=== PATIENT | male | born 1985 | race Caucasian/White ===

== ENCOUNTER 2020-05-10 18:19 | Inpatient (IN) | payer BC ==
[2020-05-10] MEDS ORDERED: DIPH,PERTUS(ACELL)TETVAC-LF 0.5 ML VIAL IM ONE (19:22)
--- NOTE | 2020-05-10 19:22 | ED ---
General Adult HPI - General Chief complaint: Psychiatric Symptoms Stated complaint: Petitioned Time Seen by Provider: 05/10/20 18:45 Source: patient, RN notes reviewed Mode of arrival: ambulatory Limitations: no limitations - History of Present Illness Initial comments: Patient is a pleasant 34-year-old male presenting to the emergency Department with thoughts of self-harm. Patient was petitioned. Patient admits to striking his head against a piece of wood. No loss of consciousness. No headache. No blood thinners. Patient denies homicidal thoughts. No alcohol or street drug use. No hallucinations. Patient states he has still been taking his medications as directed. Patient states he is struggling regarding the stress of a relationship problem. - Related Data Allergies Allergy/AdvReac Type Severity Reaction Status Date / Time No Known Allergies Allergy Verified 05/10/20 18:20 Review of Systems ROS Statement: Those systems with pertinent positive or pertinent negative responses have been documented in the HPI. ROS Other: All systems not noted in ROS Statement are negative. Constitutional: Denies: fever Eyes: Denies: eye pain ENT: Denies: ear pain Respiratory: Denies: cough Cardiovascular: Denies: chest pain Endocrine: Denies: fatigue Gastrointestinal: Denies: abdominal pain Genitourinary: Denies: dysuria Musculoskeletal: Denies: back pain Skin: Denies: rash Neurological: Denies: headache, weakness Psychiatric: Reports: depression Past Medical History Past Medical History: Hypertension History of Any Multi-Drug Resistant Organisms: None Reported Past Surgical History: No Surgical Hx Reported Past Psychological History: Bipolar, Depression Smoking Status: Never smoker Past Alcohol Use History: Rare Past Drug Use History: None Reported General Exam Limitations: no limitations General appearance: alert, in no apparent distress Head exam: Present: other (Midfrontal soft tissue swelling, mild to moderate with abrasion) Eye exam: Present: normal appearance, PERRL, EOMI. Absent: nystagmus ENT exam: Present: normal exam Neck exam: Present: normal inspection. Absent: tenderness Respiratory exam: Present: normal lung sounds bilaterally Cardiovascular Exam: Present: regular rate, normal rhythm GI/Abdominal exam: Present: soft. Absent: tenderness Extremities exam: Present: normal inspection, full ROM. Absent: tenderness Neurological exam: Present: alert, oriented X3, CN II-XII intact. Absent: motor sensory deficit Expanded Neurological exam: Present: protecting the airway Speech: Present: fluid speech Cranial nerves: EOM's Intact: Normal Sensory exam: Upper Extremity Light Touch: Normal, Lower Extremity Light Touch: Normal Motor strength exam: RUE: 5, LUE: 5, RLE: 5, LLE: 5 Eye Response: (4) open spontaneously Motor Response: (6) obeys commands Verbal Response: (5) oriented Psychiatric exam: Present: normal affect, normal mood Skin exam: Present: normal color, abrasion (Forehead/scalp.) Course Vital Signs 05/10/20 18:20 Temperature 98.7 F Pulse Rate 78 Respiratory 16 Rate Blood Pressure 138/89 O2 Sat by Pulse 96 Oximetry Medical Decision Making - Medical Decision Making Patient seen by mental health services with plans for admission. - Radiology Data Radiology results: report reviewed (Computed tomography scan of the brain reveals scalp hematoma. No acute intercranial abnormality) Disposition Clinical Impression: Depression Disposition: TRANSFER TO PSYCH HOSP/UNIT Is patient prescribed a controlled substance at d/c from ED?: No Referrals: Ventura Marie MD [Primary Care Provider] - 1-2 days Decision Time: 21:44
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
[2020-05-10] MEDS ORDERED: NON FORMULARY DRUG (Fish Oil/Dha/Epa [Fish Oil 1,200 Mg Fish Oil] 1 CAP) PO SCH (22:15)
[2020-05-10] MEDS ORDERED: INSULIN DETEMIR (LEVEMIR) 100 UNIT/ML SYR SQ SCH (22:30)
[2020-05-10 23:07] LABS: HCT 46.8 % (39.0-53.0); HGB 15.8 gm/dL (13.0-17.5); MCH 29.5 pg (25.0-35.0); MCHC 33.8 g/dL (31.0-37.0); MCV 87.3 fL (80.0-100.0); Mean Platelet Volume 8.1; Platelet Count 220 k/uL (150-450); RBC 5.36 m/uL (4.30-5.90); RDW 12.6 % (11.5-15.5); WBC 11.3 k/uL (3.8-10.6)
[2020-05-10 23:08] LABS: Appearance,Urine Clear (Clear); Bilirubin,Urine Negative (Negative); Blood,Urine Negative (Negative); Color,Urine Yellow; Glucose,Urine (UA) 2+ (Negative); Ketones,Urine Negative (Negative); Leukocyte Esterase,Urine Negative (Negative); Nitrite,Urine Negative (Negative); PH, Urine 6.5 (5.0-8.0); Protein,Urine Negative (Negative); Specific Gravity,Urine 1.008 (1.001-1.035); Urobilinogen,Urine <2.0 mg/dL (<2.0)
[2020-05-10 23:10] LABS: Glucose,Whole Blood 238 mg/dL (75-99)
[2020-05-10] MEDS: ATORVASTATIN 20 MG TAB PO SCH (23:10)
[2020-05-10] MEDS: CITALOPRAM HYDROBROMIDE 20 MG TAB PO SCH (23:10)
[2020-05-10] MEDS: PANTOPRAZOLE 40 MG TABLET PO SCH (23:11)
[2020-05-10] MEDS: ARIPiprazole 15 MG TAB PO SCH (23:11)
[2020-05-10] MEDS: ASPIRIN 81 MG PO SCH (23:11)
[2020-05-10] MEDS: lisinopriL 10 MG TAB PO SCH (23:11)
[2020-05-10 23:17] LABS: Amphetamine Screen,Urine Not Detected (NotDetected); Barbiturate Screen,Urine Not Detected (NotDetected); Benzodiazepines Screen,Urine Not Detected (NotDetected); Cocaine Screen,Urine Not Detected (NotDetected); Methadone Screen, Urine Not Detected (NotDetected); Opiate Screen,Urine Not Detected (NotDetected); Oxycodone Screen, Urine Not Detected (NotDetected); Phencyclidine Screen,Urine Not Detected (NotDetected); Tricyclic Antidepressant,Urine Not Detected (NotDetected); Urn Cannabinoid Scrn Not Detected (NotDetected)
[2020-05-10 23:18] LABS: African American GFR (CKD) >90 (>60 ml/min/1.73 sqM); Anion Gap 10 mmol/L; Blood Urea Nitrogen 11 mg/dL (9-20); Calcium 9.7 mg/dL (8.4-10.2); Carbon Dioxide 26 mmol/L (22-30); Chloride 99 mmol/L (98-107); Glucose 239 mg/dL (74-99); Non-African American GFR(CKD) >90 (>60 ml/min/1.73 sqM); Potassium 4.1 mmol/L (3.5-5.1); Sodium 135 mmol/L (137-145)
[2020-05-11] MEDS ORDERED: lamoTRIgine 100 MG TAB PO STA (11:21)
[2020-05-11] MEDS ORDERED: QUEtiapine 100 MG TAB PO STA (11:22)
[2020-05-11] MEDS ORDERED: LORazepam 1 MG TAB PO PRN (15:21)
[2020-05-11] MEDS ORDERED: MAG HYDROX/AL HYDROX/SIMETH 30 ML CUP PO PRN (15:21)
[2020-05-11] MEDS ORDERED: ZIPRASIDONE 20 MG VIAL IM PRN (15:21)
[2020-05-11] MEDS ORDERED: ACETAMINOPHEN TAB 325 MG TAB PO PRN (15:21)
[2020-05-11] MEDS ORDERED: MAGNESIUM HYDROXIDE 2,400 MG/10 ML CUP PO PRN (15:21)
[2020-05-11] MEDS ORDERED: LORazepam 2 MG/ML INJ IM PRN (15:23)
--- NOTE | 2020-05-11 16:36 | P.CONS ---
History of Present Illness - Reason for Consult Consult date: 05/11/20 Medical management - Chief Complaint Depression - History of Present Illness This is a 34-year-old male who presented to the emergency room with thoughts of self-harm and is currently petitioned and admitted to the psych unit for further management. I was asked to see him for medical management. Patient is doing well he does not have any complaints at this time he has a complex past medical history noted below. He told me that he takes his medication regularly at home. Review of Systems Review of system: 14 points review of systems were obtained and were negative except to what were mentioned in the HPI. Past Medical History Past Medical History: Hypertension History of Any Multi-Drug Resistant Organisms: None Reported Past Surgical History: No Surgical Hx Reported Past Psychological History: Bipolar, Depression Smoking Status: Never smoker Past Alcohol Use History: Rare Past Drug Use History: None Reported Medications and Allergies Home Medications Medication Instructions Recorded Confirmed Type ARIPiprazole [Abilify] 15 mg PO HS 05/10/20 05/10/20 History Aspirin [Divide Aspirin EC] 81 mg PO HS 05/10/20 05/10/20 History Atorvastatin [Lipitor] 20 mg PO HS 05/10/20 05/10/20 History Citalopram Hydrobromide [CeleXA] 20 mg PO HS 05/10/20 05/10/20 History Fish Oil/Dha/Epa [Fish Oil 1,200 1 cap PO HS 05/10/20 05/10/20 History mg Fish Oil] Insulin Aspart [NovoLOG Flexpen] See Protocol SQ TID 05/10/20 05/10/20 History Insulin Glargine [Lantus] 30 unit SQ BID 05/10/20 05/10/20 History Lisinopril [Prinivil] 10 mg PO HS 05/10/20 05/10/20 History Omeprazole 20 mg PO HS 05/10/20 05/10/20 History Allergies Allergy/AdvReac Type Severity Reaction Status Date / Time No Known Allergies Allergy Verified 05/10/20 21:44 Physical Exam Vitals: Vital Signs Temp Pulse Resp BP Pulse Ox 05/11/20 10:42 98.4 F 63 18 134/86 96 05/10/20 18:20 98.7 F 78 16 138/89 96 General: The patient is awake and alert, in no distress Eye: there is normal conjunctiva bilaterally. Neck: The neck is supple, there is no JVD. Cardiovascular: Normal S1-S2, no S3-S4, no murmurs. Respiratory: Lungs clear to auscultation bilaterally Gastrointestinal: Abdomen is soft, nontender Musculoskeletal: There is no pedal edema. Neurological:. Speech is normal. Skin: Skin is warm and dry Results CBC & Chem 7: 05/10/20 22:47 05/10/20 22:47 Labs: Abnormal Lab Results - Last 24 Hours (Table) 05/10/20 05/10/20 05/10/20 Range/Units 22:47 22:47 22:47 WBC 11.3 H (3.8-10.6) k/uL Sodium 135 L (137-145) mmol/L Glucose 239 H (74-99) mg/dL POC Glucose (mg/dL) (75-99) mg/dL Urine Glucose (UA) 2+ H (Negative) 05/10/20 Range/Units 23:08 WBC (3.8-10.6) k/uL Sodium (137-145) mmol/L Glucose (74-99) mg/dL POC Glucose (mg/dL) 238 H (75-99) mg/dL Urine Glucose (UA) (Negative) Assessment and Plan Assessment: 1. Type 2 diabetes: Continue home dose of insulin plus sliding scale 2. Essential hypertension: Blood pressure within acceptable range. Continue home regimen 3. Hyperlipidemia on Lipitor 4. Depression with thoughts about self-harm on presentation, managed by psychiatry Today, I reviewed his medication list and lab work results. Continue current regimen. We will follow up on him on an as-needed basis.
[2020-05-11 17:40] LABS: Glucose,Whole Blood 254 mg/dL (75-99)
[2020-05-11] MEDS: INSULIN ASPART (NovoLOG) 100 UNIT/ML VIAL SQ SCH ×4 (17:59→20:34)
[2020-05-11] MEDS: INSULIN DETEMIR (LEVEMIR) 100 UNIT/ML SYR SQ SCH ×2 (18:03→20:34)
[2020-05-11 20:04] LABS: Glucose,Whole Blood 243 mg/dL (75-99)
[2020-05-11] MEDS: ASPIRIN 81 MG PO SCH (20:48)
[2020-05-11] MEDS: lisinopriL 10 MG TAB PO SCH (20:49)
[2020-05-11] MEDS: PANTOPRAZOLE 40 MG TABLET PO SCH (20:49)
[2020-05-11] MEDS: ARIPiprazole 15 MG TAB PO SCH (20:49)
[2020-05-11] MEDS: CITALOPRAM HYDROBROMIDE 20 MG TAB PO SCH (20:49)
[2020-05-11] MEDS: ATORVASTATIN 20 MG TAB PO SCH (20:49)
[2020-05-12 07:51] LABS: Glucose,Whole Blood 141 mg/dL (75-99)
[2020-05-12] MEDS: INSULIN ASPART (NovoLOG) 100 UNIT/ML VIAL SQ SCH ×4 (08:10→21:05)
[2020-05-12] MEDS: INSULIN DETEMIR (LEVEMIR) 100 UNIT/ML SYR SQ SCH ×2 (08:11→21:04)
[2020-05-12 10:06] LABS: Basophils # (A) 0.1 k/uL (0-0.2); Basophils % (A) 1 %; Eosinophils # (A) 0.2 k/uL (0-0.7); Eosinophils % (A) 2 %; HCT 46.4 % (39.0-53.0); HGB 14.9 gm/dL (13.0-17.5); Lymphocytes # (A) 1.9 k/uL (1.0-4.8); Lymphocytes % (A) 25 %; MCH 29.1 pg (25.0-35.0); MCHC 32.2 g/dL (31.0-37.0); MCV 90.4 fL (80.0-100.0); Mean Platelet Volume 8.3; Monocytes # (A) 0.5 k/uL (0-1.0); Monocytes % (A) 7 %; Neutrophils % (A) 64 %; Platelet Count 202 k/uL (150-450); RBC 5.13 m/uL (4.30-5.90); RDW 12.8 % (11.5-15.5); WBC 7.9 k/uL (3.8-10.6)
[2020-05-12 10:16] LABS: ALT 25 U/L (4-49); AST 20 U/L (17-59); African American GFR (CKD) >90 (>60 ml/min/1.73 sqM); Albumin 4.2 g/dL (3.5-5.0); Alkaline Phosphatase 77 U/L (38-126); Anion Gap 7 mmol/L; Blood Urea Nitrogen 17 mg/dL (9-20); Calcium 9.4 mg/dL (8.4-10.2); Carbon Dioxide 29 mmol/L (22-30); Chloride 99 mmol/L (98-107); Cholesterol 155 mg/dL (<200); Glucose 325 mg/dL (74-99); HDL Cholesterol 26 mg/dL (40-60); LDL Cholesterol,Calculated 102 mg/dL (0-99); Non-African American GFR(CKD) >90 (>60 ml/min/1.73 sqM); Potassium 4.4 mmol/L (3.5-5.1); Sodium 135 mmol/L (137-145); Total Bilirubin 1.7 mg/dL (0.2-1.3); Total Protein 6.5 g/dL (6.3-8.2); Triglycerides 134 mg/dL (<150)
[2020-05-12] MEDS: lamoTRIgine 25 MG TAB PO SCH (10:48)
[2020-05-12 12:39] LABS: Glucose,Whole Blood 244 mg/dL (75-99)
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
[2020-05-12 17:35] LABS: Glucose,Whole Blood 276 mg/dL (75-99)
[2020-05-12 18:46] LABS: Hemoglobin A1C 11.9 % (4.0-6.0)
[2020-05-12 19:52] LABS: Glucose,Whole Blood 284 mg/dL (75-99)
[2020-05-12] MEDS: ASPIRIN 81 MG PO SCH (21:04)
[2020-05-12] MEDS: ARIPiprazole 15 MG TAB PO SCH (21:04)
[2020-05-12] MEDS: ATORVASTATIN 20 MG TAB PO SCH (21:04)
[2020-05-12] MEDS: PANTOPRAZOLE 40 MG TABLET PO SCH (21:04)
[2020-05-12] MEDS: lisinopriL 10 MG TAB PO SCH (21:04)
[2020-05-13 07:39] LABS: Glucose,Whole Blood 120 mg/dL (75-99)
[2020-05-13] MEDS: INSULIN ASPART (NovoLOG) 100 UNIT/ML VIAL SQ SCH ×7 (07:56→20:16)
[2020-05-13] MEDS: lamoTRIgine 25 MG TAB PO SCH (07:56)
[2020-05-13] MEDS: INSULIN DETEMIR (LEVEMIR) 100 UNIT/ML SYR SQ SCH ×2 (07:57→20:21)
--- NOTE | 2020-05-13 09:50 | P.PN ---
Subjective Progress Note Date: 05/13/20 Principal diagnosis: Bipolar 1 depressed Subjective: Patient said he had trouble sleeping last night but there is a lot of noise in here and it's a strange place to his brain says he is feeling a little more hopeful as he sought to some of the things that we talked about yesterday. He also reached out to 2 people at work one of full him told him that he was glad to take him fishing any time he needs to get out and be with someone and the other one said that he could talk to them at work any time he needed to. Objective vital signs temperature 98.1 heart rate 55 respiration 16 blood pressure 110/56 Labs sugars come down nicely and is 120 he was running a 25 when he came in because he was not taking good care of himself Groups: The patient has been attending he seems somewhat sad and blunted minimal self-care paid good attention was compliant and cooperative just quiet with minimal interaction with others Staff assessment: Patient is sad keeps to himself calm oriented denies suicidality or homicidality or psychotic symptoms cooperative with ADLs and with medication. Mental status exam patient is alert serious affect gait and station normal psychomotor activity somewhat decreased no evidence of psychosis no tearfulness no agitation good eye contact reasonable response times answers fit the questions Assessment: Patient still depressed but is taking steps toward a discharge plan that he can commit to. We'll reassess daily I think he'll need 2 or 3 more days to make sure he tolerates the medication changes and has a plan that he can commit to that will work Objective - Vital Signs Vital signs: Vital Signs Temp 98.1 F 05/13/20 06:56 Pulse 55 L 05/13/20 06:56 Resp 16 05/13/20 06:56 BP 110/56 05/13/20 06:56 Pulse Ox 97 05/11/20 18:33 - Labs CBC & Chem 7: 05/12/20 09:33 05/12/20 09:33 Labs: Abnormal Lab Results - Last 24 Hours (Table) 05/12/20 05/12/20 05/12/20 Range/Units 09:33 09:33 12:36 Sodium 135 L (137-145) mmol/L Glucose 325 H (74-99) mg/dL POC Glucose (mg/dL) 244 H (75-99) mg/dL Hemoglobin A1c 11.9 H (4.0-6.0) % Total Bilirubin 1.7 H (0.2-1.3) mg/dL LDL Cholesterol, Calc 102 H (0-99) mg/dL HDL Cholesterol 26 L (40-60) mg/dL 05/12/20 05/12/20 05/13/20 Range/Units 17:34 19:50 07:38 Sodium (137-145) mmol/L Glucose (74-99) mg/dL POC Glucose (mg/dL) 276 H 284 H 120 H (75-99) mg/dL Hemoglobin A1c (4.0-6.0) % Total Bilirubin (0.2-1.3) mg/dL LDL Cholesterol, Calc (0-99) mg/dL HDL Cholesterol (40-60) mg/dL
[2020-05-13 12:38] VITALS: BMI 33.3
[2020-05-13 12:41] LABS: Glucose,Whole Blood 180 mg/dL (75-99)
[2020-05-13 17:49] LABS: Glucose,Whole Blood 298 mg/dL (75-99)
[2020-05-13 20:15] LABS: Glucose,Whole Blood 247 mg/dL (75-99)
[2020-05-13] MEDS: ASPIRIN 81 MG PO SCH (20:17)
[2020-05-13] MEDS: lisinopriL 10 MG TAB PO SCH (20:17)
[2020-05-13] MEDS: ATORVASTATIN 20 MG TAB PO SCH (20:17)
[2020-05-13] MEDS: ARIPiprazole 15 MG TAB PO SCH (20:17)
[2020-05-13] MEDS: PANTOPRAZOLE 40 MG TABLET PO SCH (20:17)
[2020-05-14 07:58] LABS: Glucose,Whole Blood 105 mg/dL (75-99)
[2020-05-14] MEDS: INSULIN DETEMIR (LEVEMIR) 100 UNIT/ML SYR SQ SCH ×2 (08:15→21:00)
[2020-05-14] MEDS: INSULIN ASPART (NovoLOG) 100 UNIT/ML VIAL SQ SCH ×7 (08:15→21:00)
[2020-05-14] MEDS: lamoTRIgine 25 MG TAB PO SCH (08:17)
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
[2020-05-14 13:03] LABS: Glucose,Whole Blood 260 mg/dL (75-99)
[2020-05-14 17:46] LABS: Glucose,Whole Blood 181 mg/dL (75-99)
[2020-05-14 19:59] LABS: Glucose,Whole Blood 290 mg/dL (75-99)
[2020-05-14] MEDS: lisinopriL 10 MG TAB PO SCH (20:59)
[2020-05-14] MEDS: ATORVASTATIN 20 MG TAB PO SCH (20:59)
[2020-05-14] MEDS: ARIPiprazole 15 MG TAB PO SCH (20:59)
[2020-05-14] MEDS: PANTOPRAZOLE 40 MG TABLET PO SCH (20:59)
[2020-05-14] MEDS: ASPIRIN 81 MG PO SCH (21:00)
[2020-05-15 07:45] LABS: Glucose,Whole Blood 135 mg/dL (75-99)
[2020-05-15] MEDS: lamoTRIgine 25 MG TAB PO SCH (08:00)
[2020-05-15] MEDS: INSULIN ASPART (NovoLOG) 100 UNIT/ML VIAL SQ SCH ×7 (08:00→20:52)
[2020-05-15] MEDS: INSULIN DETEMIR (LEVEMIR) 100 UNIT/ML SYR SQ SCH ×3 (08:01→21:55)
[2020-05-15] MEDS ORDERED: lamoTRIgine 25 MG TAB PO ONE (10:43)
--- NOTE | 2020-05-15 10:47 | P.PN ---
Progress Note - Text Progress Note Date: 05/15/20 Interval history: Patient was seen lying in his bed today and was directable and agreeable to s peak with food writer. Patient appeared to have fair hygiene and grooming. He was fairly cooperative and polite with brighter today. He claims that he has been thinking a lot about "I can't change the past I can only move forward". He states that he has been going all the groups that he can and has been enjoying to speak to others. He states that he was able to sleep better last night. He states that his depression has been improving mildly and is agreeable to go up on his Lamictal. At this time patient denies any suicidal or homicidal ideations intent or plan. Denies any Auditory or visual hallucinations. Patient denies any side effects from the medications and has been compliant with meds. Mental status exam: General Appearance: Patient appears to be overweight, stated age is alert, directable, and attempts to be cooperative. Improving hygiene Behavior: No agitated behavior. Patient is calm and directable polite. Speech: Patient's speech is fluent and nonpressured. Mood/Affect: Mood is depressed however is improving mildly, affect is congruent and constricted. Suicidality/Homicidality: Patient denies having any suicidal or homicidal ideation intent or plan. Perceptions: Patient denies any auditory or visual hallucinations. Though content/process: There is no evidence of any delusional thought content and thought process is linear and goal-directed. Memory and concentration: AOX3, grossly intact for the purposes of this session Judgment and insight: improving mildly Assessment/Plan: Continue with current diagnosis. Patient continues to meet criteria for inpatient psychiatric admission for symptom stabilization and safety.Patient will be maintained on current psychotropic medication regimen with the exception of increasing Lamictal to 50 mg daily for mood stabilization/depression. Monitor for medication compliance and for any psychotropic medication side effects. Will continue to monitor ongoing response to treatment. Encouraged participation in milieu.
[2020-05-15 13:10] LABS: Glucose,Whole Blood 236 mg/dL (75-99)
[2020-05-15 17:33] LABS: Glucose,Whole Blood 248 mg/dL (75-99)
[2020-05-15 20:16] LABS: Glucose,Whole Blood 262 mg/dL (75-99)
[2020-05-15] MEDS: ARIPiprazole 15 MG TAB PO SCH (20:51)
[2020-05-15] MEDS: lisinopriL 10 MG TAB PO SCH (20:51)
[2020-05-15] MEDS: ATORVASTATIN 20 MG TAB PO SCH (20:51)
[2020-05-15] MEDS: PANTOPRAZOLE 40 MG TABLET PO SCH (20:51)
[2020-05-15] MEDS: ASPIRIN 81 MG PO SCH (20:51)
--- NOTE | 2020-05-15 20:56 | P.PN ---
Progress Note - Text Progress Note Date: 05/15/20 notified by RN , regarding multiple high blood sugar reading. insulin regimen reviewed insuline sliding scale requirement over past 3 days reviewed patient on average requiring at least 12 extra units daily 6 units added to his long acting insulin requirement , and 6 units added to his preprandial scheduled insulin orders placed continue to monitor
[2020-05-15] MEDS ORDERED: INSULIN DETEMIR (LEVEMIR) 100 UNIT/ML SYR SQ ONE (22:05)
[2020-05-16 06:48] VITALS: RESP 16
[2020-05-16 08:10] LABS: Glucose,Whole Blood 128 mg/dL (75-99)
[2020-05-16] MEDS: INSULIN ASPART (NovoLOG) 100 UNIT/ML VIAL SQ SCH ×7 (08:31→20:33)
[2020-05-16] MEDS: lamoTRIgine 25 MG TAB PO SCH (08:32)
[2020-05-16] MEDS: INSULIN DETEMIR (LEVEMIR) 100 UNIT/ML SYR SQ SCH ×2 (08:32→20:46)
--- NOTE | 2020-05-16 10:50 | P.PN ---
Progress Note - Text Progress Note Date: 05/16/20 Interval history: Patient was seen lying in his bed today and was directable and agreeable to s peak with telegraphic typewriter mechanic. Patient appeared to have fair hygiene and grooming. He was fairly cooperative and polite with the telegraphic typewriter mechanic and claims that his mood has been gradually improving since being in the hospital. He claims the he feels mild improvement with the Lamictal being increased yesterday. He is continuing to think about how he can fight his depression and move forward. He states that he has been going all the groups. He states that he was able to sleep last night however claims that there is "too much noise in the room". At this time patient denies any suicidal or homicidal ideations intent or plan. Denies any Auditory or visual hallucinations. Patient denies any side effects from the medications and has been compliant with meds. Mental status exam: General Appearance: Patient appears to be overweight, stated age is alert, directable, and attempts to be cooperative. Improving hygiene Behavior: No agitated behavior. Patient is calm and directable polite. Speech: Patient's speech is fluent and nonpressured. Mood/Affect: Mood is improving mildly, affect is congruent and constricted. Suicidality/Homicidality: Patient denies having any suicidal or homicidal ideation intent or plan. Perceptions: Patient denies any auditory or visual hallucinations. Though content/process: There is no evidence of any delusional thought content and thought process is linear and goal-directed. Future oriented. Memory and concentration: AOX3, grossly intact for the purposes of this session Judgment and insight: improving mildly Assessment/Plan: Continue with current diagnosis. Patient continues to meet criteria for inpatient psychiatric admission for symptom stabilization and safety.Patient will be maintained on current psychotropic medication regimen. Monitor for medication compliance and for any psychotropic medication side effects. Will continue to monitor ongoing response to treatment. Encouraged participation in milieu.
[2020-05-16 12:59] LABS: Glucose,Whole Blood 168 mg/dL (75-99)
[2020-05-16 18:11] LABS: Glucose,Whole Blood 275 mg/dL (75-99)
[2020-05-16 20:04] LABS: Glucose,Whole Blood 249 mg/dL (75-99)
[2020-05-16] MEDS: ATORVASTATIN 20 MG TAB PO SCH (20:49)
[2020-05-16] MEDS: PANTOPRAZOLE 40 MG TABLET PO SCH (20:49)
[2020-05-16] MEDS: ARIPiprazole 15 MG TAB PO SCH (20:49)
[2020-05-16] MEDS: ASPIRIN 81 MG PO SCH (20:50)
[2020-05-16] MEDS: lisinopriL 10 MG TAB PO SCH (20:50)
[2020-05-17 07:24] VITALS: BP 115/57; PULSE 59; TEMP 97.9
[2020-05-17 07:45] LABS: Glucose,Whole Blood 159 mg/dL (75-99)
[2020-05-17] MEDS: lamoTRIgine 25 MG TAB PO SCH (07:56)
[2020-05-17] MEDS: INSULIN ASPART (NovoLOG) 100 UNIT/ML VIAL SQ SCH ×2 (07:56)
[2020-05-17] MEDS: INSULIN DETEMIR (LEVEMIR) 100 UNIT/ML SYR SQ SCH (07:57)
--- NOTE | 2020-05-17 09:47 | P.DS ---
Providers Date of admission: 05/11/20 15:15 Expected date of discharge: 05/17/20 Attending physician: Red Zavala MD Consults: 05/11/20 15:21 Consult Physician Routine Consulting Provider: Justin Whipple Consult Reason/Comments: H&P and medical Do you want consulting provider notified?: Yes Primary care physician: [facility] Course: The patient was admitted to the psychiatric unit on 831 and is being discharged on 97 Diagnosis: Bipolar 1 depressed Course in the Hospital the patient was cooperative. Medications: The patient had his antidepressant discontinued as it tends to aggravate bipolar depression, this was Celexa 20. He was started on Lamictal which was increased on Sunday by Dr. Gomez from 25-50. Given the patient's size in nature I think that we'll be safe but I told him he must not go up from 50-100 until he has been on the 50 for full 2 weeks and not to expect much benefit until he gets the 100. We continued his Abilify 15 mg. Toward the end he was attending groups staying the entire time spontaneous bright verbal with peers and staff. Staff assessment: Patient was sleeping well looking forward to discharge somewhat concrete but logical oriented cooperative and consistently denying hallucinations or delusions suicidal ideas or homicidal ideas. Discharge plan: We set the patient up with counseling and I gave him instruction s how to maximize the benefit of that. He also has an appointment for refilling his medication and understands that that needs to be monitored but he needs to go up to 100 mg in exactly 2 weeks and if that doesn't work go up to 150 a week later. He has made arrangements for support at work and to find things to do at home so is not sitting around the house by himself. Mental status exam: Patient is alert good eye contact and normal response time skate and station normal psychomotor activity is normal he definitely has more physical energy than he had on Sunday when I saw him. No agitation or tearfulness. He was willing to acknowledge that that could be ambushes and difficult times ahead and was able to identify people to call if that occurs. Totally denied any suicidal ideas or homicidal ideas since shortly after admission and now he has more hope than he did on Sunday Assessment: The patient came in severely depressed as calm down come together with a di scharge plan is much more hopeful no signs of suicidality or homicidality I believe his prognosis is fair that he will go out and continued to do what needs to in regards to counseling and medication Health Concerns: The patient has multiple high blood sugar readings and was seen by internal medicine and his insulin adjusted. The patient also has a history of high blood pressure which was fine throughout his stay here. Vital signs on discharge were temperature 97.9 heart rate 59 respirations 16 and blood pressure 115/57 Patient has a history of hyperlipidemia and is being treated with Lipitor Labs: Basically just monitored his sugar throughout his stay which tended to run somewhat high between 130 and 270 Pertinent Studies: None Procedures: Not Patient Condition at Discharge: Fair Plan - Discharge Summary Discharge Rx Participant: No New Discharge Prescriptions: No Action Insulin Glargine [Lantus] 30 unit SQ BID Insulin Aspart [NovoLOG Flexpen] See Protocol SQ TID Atorvastatin [Lipitor] 20 mg PO HS Aspirin [[place] Aspirin EC] 81 mg PO HS Fish Oil/Dha/Epa [Fish Oil 1,200 mg Fish Oil] 1 cap PO HS Citalopram Hydrobromide [CeleXA] 20 mg PO HS ARIPiprazole [Abilify] 15 mg PO HS Omeprazole 20 mg PO HS Lisinopril [Prinivil] 10 mg PO HS Discharge Medication List ARIPiprazole [Abilify] 15 mg PO HS 05/10/20 [History] Aspirin [[place] Aspirin EC] 81 mg PO HS 05/10/20 [History] Atorvastatin [Lipitor] 20 mg PO HS 05/10/20 [History] Citalopram Hydrobromide [CeleXA] 20 mg PO HS 05/10/20 [History] Fish Oil/Dha/Epa [Fish Oil 1,200 mg Fish Oil] 1 cap PO HS 05/10/20 [History] Insulin Aspart [NovoLOG Flexpen] See Protocol SQ TID 05/10/20 [History] Insulin Glargine [Lantus] 30 unit SQ BID 05/10/20 [History] Lisinopril [Prinivil] 10 mg PO HS 05/10/20 [History] Omeprazole 20 mg PO HS 05/10/20 [History] Follow up Appointment(s)/Referral(s): Rj Bolton [Other] - 05/26/20 3:45 pm (Intake) Ventura Marie MD [Primary Care Provider] - 1-2 days Activity/Diet/Wound Care/Special Instructions: Activity and diet as tolerated. Avoid the use of street drugs and alcohol. Take all medications as prescribed. When you are in need of refills on your medications please contact your medical provider and/or outpatient psychiatrist to have this done. Please go to scheduled outpatient appointment for aftercare treatment. If symptoms return or become worse, call the crisis line at and/or go to the nearest emergency room for evaluation.
== END 2020-05-17 12:00 | disposition home or self-care (01) | DRG 885 ==
LOC: EC 18:19 → 3MHU 05-11 15:15
PROVIDERS: ADMIT Psychiatry & Neurology Psychiatry; ATTEND Psychiatry & Neurology Psychiatry
PROC: 3E0234Z Introduction of Serum, Toxoid and Vaccine into Muscle, Percutaneous Approach (ICD-10-PCS; principal; 2020-05-10)
DX: F31.30 Bipolar disorder, current episode depressed, mild or moderate severity, unspecified (principal); R45.851 Suicidal ideations; S00.91XA Abrasion of unspecified part of head, initial encounter; Z79.4 Long term (current) use of insulin; I10 Essential (primary) hypertension; E78.5 Hyperlipidemia, unspecified; E66.3 Overweight; E11.65 Type 2 diabetes mellitus with hyperglycemia; Z68.34 Body mass index [BMI] 34.0-34.9, adult; Z23 Encounter for immunization; Z79.82 Long term (current) use of aspirin; Z79.899 Other long term (current) drug therapy
CPT/HCPCS: 36415; 70450; 80048; 80053; 80061; 80306; 81003; 82075; 83036; 84443; 85025; 85027; 90471; 90715; 99285

== ENCOUNTER 2021-07-03 17:56 | Emergency (ER) | payer BC, OTHER ==
[2021-07-03 18:12] VITALS: BP 135/86; PULSE 100; RESP 16; TEMP 98
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
== END 2021-07-03 19:57 | disposition home or self-care (01) ==
LOC: EC 17:56
DX: F43.20 Adjustment disorder, unspecified (principal); E78.5 Hyperlipidemia, unspecified; E11.9 Type 2 diabetes mellitus without complications; I10 Essential (primary) hypertension; Z79.899 Other long term (current) drug therapy; Z79.4 Long term (current) use of insulin; Z79.82 Long term (current) use of aspirin; Z87.820 Personal history of traumatic brain injury
CPT/HCPCS: 82075; 99284